=== PATIENT | male | born 1975 | race Caucasian/White ===

== ENCOUNTER 2018-02-12 13:41 | Emergency (ER) | payer OTHER ==
[~2018-02-12] VITALS: Ht 170.2 cm; Wt 74.8 kg
[2018-02-12 13:52] VITALS: BP 122/72
--- NOTE | 2018-02-12 14:18 | NUR ---
42 YO MALE BIB SELF FOR LEFT EYE BRUISE FROM [facility] TUESDAY NIGHT. PT STATED HEREPORTED TO PD OFFICER. DENIES LOC, N/V. PATIENT STATES PAIN OF 8/10 AT THIS TIME. PATIENT POSITIONED FOR COMFORT; HOB ELEVATED; BEDRAILS UP X2; BED DOWN. ER MD MADE AWARE OF PT STATUS.
--- NOTE | 2018-02-12 15:00 | NUR ---
Patient being evaluated by DR WEAVER at bedside.
[2018-02-12 15:25] VITALS: BP 118/68
--- NOTE | 2018-02-12 15:25 | NUR ---
Patient discharged with v/s stable. Written and verbal after care instructions given and explained. Patient verbalized understanding. Ambulatory with steady gait. All questions addressed prior to discharge. Advised to follow up with PMD.
== END 2018-02-12 15:25 | disposition home or self-care (01) ==
LOC: MED 13:41
DX: S00.12XA Contusion of left eyelid and periocular area, initial encounter (principal); W50.0XXA Accidental hit or strike by another person, initial encounter; Y93.89 Activity, other specified; Y92.89 Other specified places as the place of occurrence of the external cause; Y99.8 Other external cause status
CPT/HCPCS: 99283

== ENCOUNTER 2021-03-16 12:52 | Emergency (ER) | payer OTHER ==
[~2021-03-16] VITALS: Ht 170.2 cm; Wt 81.6 kg
[2021-03-16 13:35] VITALS: BP 136/80
[2021-03-16] MEDS ORDERED: ACET-10509 PO (14:12)
[2021-03-16] MEDS ORDERED: PHEN177S23 PO (14:12)
[2021-03-16] MEDS ORDERED: PROM118S5 PO (14:12)
[2021-03-16 14:32] VITALS: BP 136/80
--- NOTE | 2021-03-16 14:32 | NUR ---
NOVEL SWAB DONE. HANDED TO [facility] CHILDERS
--- NOTE | 2021-03-16 14:33 | NUR ---
Patient discharged with v/s stable. Written and verbal after care instructions given and explained. Patient alert, oriented and verbalized understanding of instructions. Ambulatory with steady gait. All questions addressed prior to discharge. ID band removed. Patient advised to follow up with PMD. Rx of TYLENOL EXTRA, PHENOL, PROMETHAZINE DM SYUP given. Patient educated on indication of medication including possible reaction and side effects. Opportunity to ask questions provided and answered.
== END 2021-03-16 14:33 | disposition home or self-care (01) ==
LOC: MED 12:52
DX: R05.9 Cough, unspecified (principal); Z20.822 Contact with and (suspected) exposure to COVID-19; M79.10 Myalgia, unspecified site; Z79.899 Other long term (current) drug therapy
CPT/HCPCS: 99283; U0003

== ENCOUNTER 2022-05-14 11:55 | Emergency (ER) | payer OTHER ==
[~2022-05-14] VITALS: Ht 172.7 cm; Wt 73.9 kg
[~2022-05-14 11:55] MED LIST: ACET-10509 PO; PHEN177S23 PO; PROM118S5 PO
[2022-05-14 12:19] VITALS: BP 144/82
[2022-05-14] MEDS ORDERED: KETOROLAC 30 MG/ML VIAL IM ONE (12:55)
[2022-05-14] MEDS ORDERED: IBUP-2213 PO (13:01)
[2022-05-14] MEDS ORDERED: CYCL-711 PO (13:01)
[2022-05-14] MEDS ORDERED: LID5T TP (13:01)
[2022-05-14 13:09] LABS: APPEARANCE,URINE CLEAR (CLEAR); BILIRUBIN,URINE NEGATIVE (NEGATIVE); BLOOD, URINE NEGATIVE (NEGATIVE); COLOR,URINE YELLOW (YELLOW); LEUKOCYTE ESTERASE ,URINE NEGATIVE (NEGATIVE); NITRITE, URINE NEGATIVE (NEGATIVE); PH,URINE 7.5 (5.0-9.0); UGLUCOSE NEGATIVE (NEGATIVE)
== END 2022-05-14 13:45 | disposition home or self-care (01) ==
LOC: MED 11:55
DX: S39.012A Strain of muscle, fascia and tendon of lower back, initial encounter (principal); Z79.899 Other long term (current) drug therapy; X58.XXXA Exposure to other specified factors, initial encounter; Y93.89 Activity, other specified; Y92.89 Other specified places as the place of occurrence of the external cause; Y99.8 Other external cause status
CPT/HCPCS: 81003; 96372; 99283; J1885; 99284

== ENCOUNTER 2023-06-01 09:26 | Emergency (ER) | payer OTHER ==
[~2023-06-01] VITALS: Ht 170.2 cm; Wt 79.4 kg
[~2023-06-01 09:26] MED LIST changes: +CYCL-711 PO; +IBUP-2213 PO; +LID5T TP
[2023-06-01 09:58] VITALS: BP 130/74; PULSE 76; RESP 18; TEMP 98.2; O2SAT 98
[2023-06-01 11:22] LABS: BASOPHILS % (AUTO) 0.5 % (0.0-2.0); EOSINOPHILS # (AUTO) 0.1 K/uL (0-0.4); EOSINOPHILS % (AUTO) 0.8 % (0.0-4.0); HEMATOCRIT 41.7 % (36-52); HEMOGLOBIN 14.8 g/dL (12.0-18.0); LYMPHOCYTES # (AUTO) 1.7 K/uL (2.0-11.5); LYMPHOCYTES % (AUTO) 16.6 % (20.5-51.1); MEAN CORPUSCULAR HEMOGLOBIN 33 pg (27-31); MEAN CORPUSCULAR HGB CONC 35 g/dL (33-37); MONOCYTES # (AUTO) 0.9 K/uL (0.8-1.0); MONOCYTES % (AUTO) 8.8 % (1.7-9.3); NEUTROPHILS # (AUTO) 7.6 K/uL (1.8-7.7); NEUTROPHILS % (AUTO) 73.3 % (42.2-75.2); PLATELET COUNT (AUTO) 198 K/uL (140-450); RED BLOOD CELL COUNT(AUTO) 4.44 MIL/uL (4.20-6.10); RED CELL DISTRIBUTION WIDTH 12.7 % (11.6-13.7); WHITE BLOOD COUNT (AUTO) 10.4 K/uL (4.8-10.8)
[2023-06-01] MEDS: NACL 0.9% 1,000 ML IV ONE (11:33)
[2023-06-01] MEDS: ACETAMINOPHEN EXTRA STRENGTH 500 MG TAB PO ONE (11:38)
[2023-06-01] MEDS: MECLIZINE 25 MG TAB PO ONE (11:38)
[2023-06-01 11:40] VITALS: TEMP 98.2
[2023-06-01 12:28] LABS: ALANINE AMINOTRANSFERASE 26 U/L (12-78); ALBUMIN 3.3 g/dL (3.4-5.0); ALKALINE PHOSPHATASE 94 U/L (50-136); ANION GAP 12.1 (8-16); ASPARTATE AMINOTRANSFERASE 19 U/L (15-37); CALCIUM 8.9 mg/dL (8.5-10.1); CARBON DIOXIDE 27.7 mmol/L (21-32); CHLORIDE 102 mmol/L (98-107); CREATININE 0.8 mg/dL (0.6-1.3); GFR ARICAN-AMERICAN 134 mL/min (>90); GFR NON ARICAN-AMERICAN 111 mL/min (>90); GLUCOSE 106 mg/dL (74-106); MAGNESIUM 2.1 mg/dL (1.8-2.4); POTASSIUM 3.8 mmol/L (3.5-5.1); SODIUM SERUM 138 mmol/L (136-145); TOTAL BILIRUBIN 0.3 mg/dL (0.0-1.0); TOTAL PROTEIN, SERUM 6.6 g/dL (6.4-8.2); UREA NITROGEN, BLOOD 16 mg/dL (7-18)
[2023-06-01 13:30] VITALS: BP 123/74; PULSE 65; RESP 16; O2SAT 98
[2023-06-01] MEDS ORDERED: IBUP-2213 PO (13:54)
[2023-06-01] MEDS ORDERED: MECL-303 PO (13:54)
== END 2023-06-01 14:05 | disposition home or self-care (01) ==
LOC: MED 09:26
DX: R07.9 Chest pain, unspecified (principal); R42 Dizziness and giddiness; R11.0 Nausea; Z79.899 Other long term (current) drug therapy
CPT/HCPCS: 36415; 71045; 80053; 83735; 84484; 85025; 93005; 96360; 99285; J7030; J8597